=== PATIENT | female | born 1985 | race Hispanic/Latino ===

== ENCOUNTER 2018-01-29 20:10 | Emergency (ER) | payer OTHER ==
[2018-01-29 21:47] LABS: Urine Blood 2+ (NEG); Urine Glucose NEGATIVE (NEG); Urine Protein NEGATIVE (NEG)
[2018-01-29] MEDS ORDERED: ACETAMINOPHEN 500 MG TAB ONE (22:09)
[2018-01-29 22:14] LABS: Absolute Lymphocytes (CBC) 1.6 K/uL (0.7-4.9); Absolute Monocytes 0.4 K/uL (0.1-1.3); Absolute Neutrophil 5.2 K/uL (1.8-8.0); Basophils % 0.8 % (0-1.3); Eosinophils % 1.2 % (0-4.4); Hematocrit 33.3 % (36.0-45.0); Lymphocytes % 21.3 % (15.3-44.8); MCH 23.6 pg (27.0-35.0); MCV 72.5 fL (80-100); MPV 9.2 fL (7.6-11.3); Monocytes % 6.1 % (3.3-12.3); RBC Red Blood Cell Count 4.59 M/uL (3.86-4.86)
[2018-01-29 22:19] LABS: Urine Bacteria <20 /HPF (<20); Urine Culture Reflex Order NOT NEEDED
[2018-01-29 22:51] LABS: BUN Blood Urea Nitrogen 8 mg/dL (7-18); Bicarbonate 26 mmol/L (21-32); Glucose Level 98 mg/dL (74-106); HCG, Quantitative 7265 mIU/mL (1-3); Potassium 3.6 mmol/L (3.5-5.1); Sodium Level 140 mmol/L (136-145)
[2018-01-29 23:13] LABS: Anisocytosis 2+; Blood Morphology Comment NOTED (NOT SEEN); Ovalocytes 2+; Platelet Estimate ADEQ; Urine White Blood Cell Casts OK
--- NOTE | 2018-01-30 01:13 | EDPHYS ---
Physician Documentation [facility] Name: Kath Rodarte Age: 32 yrs Sex: Female : 1985 Arrival Date: 01/29/2018 Time: 20:11 Bed 20 Private MD: ED Physician Rajendra Pham HPI: 01/30 11:35 This 32 yrs old Female presents to ER via Ambulatory with complaints of wa Vaginal Bleeding, + Preg <12wks. 11:36 The patient presents to the emergency department with abdominal pain, of the suprapubic wa area, right lower quadrant and left lower quadrant, that started yesterday, described as crampy, vaginal bleeding, that is light. The estimated gestational age is 7 weeks. course: Ultrasound: the patient had an ultrasound, Risk/complications: no obvious risks or complications are appreciated. Previous pregnancies: in previous pregnancies patient has had vaginal delivery, no complications. Associated signs and symptoms: Pertinent positives: vaginal bleeding, Pertinent negatives: dysuria, fever, nausea, vomiting. The patient has not experienced similar symptoms in the past. The patient has been recently seen by a physician: PORFIRIO Peña. 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 - Social history:: Smoking status: Patient/guardian denies using tobacco. - Ebola Screening: : Patient negative for fever greater than or equal to 101.5 degrees Fahrenheit, and additional compatible Ebola Virus Disease symptoms Patient denies exposure to infectious person Patient denies travel to an Ebola-affected area in the 21 days before illness onset. - Family history:: not pertinent. - Hospitalizations: : No recent hospitalization is reported. ROS: 01/30 11:38 Constitutional: Negative for fever, chills, and weight loss, Eyes: Negative for injury, wa pain, redness, and discharge, ENT: Negative for injury, pain, and discharge, Neck: Negative for injury, pain, and swelling, Cardiovascular: Negative for chest pain, palpitations, and edema, Respiratory: Negative for shortness of breath, cough, wheezing, and pleuritic chest pain, Back: Negative for injury and pain, MS/Extremity: Negative for injury and deformity, Skin: Negative for injury, rash, and discoloration, Neuro: Negative for headache, weakness, numbness, tingling, and seizure. Abdomen/GI: Positive for abdominal pain, of the suprapubic area, right lower quadrant and left lower quadrant. : Positive for pelvic pain, vaginal bleeding. All other systems are negative. Exam: 11:39 Constitutional: This is a well developed, well nourished patient who is awake, alert, wa and in no acute distress. Head/Face: Normocephalic, atraumatic. Eyes: Pupils equal round and reactive to light, extra-ocular motions intact. Lids and lashes normal. Conjunctiva and sclera are non-icteric and not injected. Cornea within normal limits. Periorbital areas with no swelling, redness, or edema. ENT: Nares patent. No nasal discharge, no septal abnormalities noted. Tympanic membranes are normal and external auditory canals are clear. Oropharynx with no redness, swelling, or masses, exudates, or evidence of obstruction, uvula midline. Mucous membranes moist. Neck: Trachea midline, no thyromegaly or masses palpated, and no cervical lymphadenopathy. Supple, full range of motion without nuchal rigidity, or vertebral point tenderness. No Meningismus. Cardiovascular: Regular rate and rhythm with a normal S1 and S2. No gallops, murmurs, or rubs. Normal PMI, no JVD. No pulse deficits. Respiratory: Lungs have equal breath sounds bilaterally, clear to auscultation and percussion. No rales, rhonchi or wheezes noted. No increased work of breathing, no retractions or nasal flaring. Back: No spinal tenderness. No costovertebral tenderness. Full range of motion. Skin: Warm, dry with normal turgor. Normal color with no rashes, no lesions, and no evidence of cellulitis. MS/ Extremity: Pulses equal, no cyanosis. Neurovascular intact. Full, normal range of motion. Neuro: Awake and alert, GCS 15, oriented to person, place, time, and situation. Cranial nerves II-XII grossly intact. Motor strength 5/5 in all extremities. Sensory grossly intact. Cerebellar exam normal. Normal gait. Psych: Awake, alert, with orientation to person, place and time. Behavior, mood, and affect are within normal limits. 11:39 Abdomen/GI: Inspection: abdomen appears normal, Palpation: mild abdominal tenderness, in the right lower quadrant and left lower quadrant. Vital Signs: 01/29 20:36 BP 110 / 61; Pulse 76; Resp 18; Temp 98.9(O); Pulse Ox 100% on R/A; Weight 57.61 kg fc (R); Height 5 ft. 1 in. (154.94 cm) (R); Pain 3/10; 21:45 BP 121 / 62; Pulse 83; Resp 16 S; Pulse Ox 100% ; bs1 22:45 BP 112 / 53; Pulse 79; Resp 16 S; Pulse Ox 100% ; bs1 23:45 BP 105 / 79; Pulse 94; Resp 17 S; Pulse Ox 100% on R/A; bs1 01/30 00:45 BP 124 / 63; Pulse 80; Resp 16 S; Pulse Ox 100% on R/A; bs1 01:30 BP 100 / 60; Pulse 80; Resp 17; Temp 98(O); Pulse Ox 100% on R/A; Pain 3/10; bs1 01/29 20:36 Body Mass Index 24.00 (57.61 kg, 154.94 cm) fc MDM: 01/29 21:29 Patient medically screened. ny 01/30 11:40 Differential diagnosis: threatened ab. r/o miss ab. r/o UTI. Data reviewed: vital wa signs, nurses notes, lab test result(s), radiologic studies. Test interpretation: by ED physician or midlevel provider: pelvic US: 6 weeks 2 days IUP. small KATIE. HR 120. Response to treatment: the patient's symptoms have markedly improved after treatment. 01/29 21:40 Order name: Abo/rh Typing; Complete Time: :01/29 21:40 Order name: Basic Metabolic Panel; Complete Time: :01/29 21:40 Order name: CBC with Diff; Complete Time: :01/29 21:40 Order name: Quantitative Hcg; Complete Time: :01/29 21:41 Order name: Urine Microscopic Only; Complete Time: :08 ny 01/29 21:44 Order name: Urine Dipstick--Ancillary (enter results); Complete Time: 01:09 01/29 21:40 Order name: IV Saline Lock; Complete Time: 21:55 ny 01/29 21:40 Order name: Labs collected and sent; Complete Time: 21:56 ny 01/29 21:40 Order name: NPO; Complete Time: 22:01 ny 01/29 21:40 Order name: Urine Dipstick-Ancillary (obtain specimen); Complete Time: 21:59 ny 01/29 21:41 Order name: US Pelvis Complete 01/29 21:44 Order name: Urine --Ancillary (enter results); Complete Time: 01:09 01/29 22:15 Order name: CBC Smear Scan; Complete Time: 01:08 EDMS Administered Medications: 01/29 22:08 Drug: Tylenol 1000 mg Route: PO; bs1 01/30 01:49 Follow up: Response: No adverse reaction bs1 Point of Care Testing: Urine : 01/29 22:44 hCG Reading: Positive; Control Reading: Positive; bs1 Disposition: 01/30/18 01:12 Discharged to Home. Impression: Threatened . - Condition is Stable. - Discharge Instructions: Threatened Miscarriage. - Medication Reconciliation Form, Thank You Letter, Antibiotic Education, Prescription Opioid Use form. - Follow up: Private Physician; Reason: Recheck today's complaints. - Problem is new. - Symptoms have improved. - Notes: follow up with your OB doctor within 2-3 days. return for severe pain and or bleeding Signatures: Dispatcher [employer] EDCO Sumi Braswell RN RN Rajendra Pham MD MD ny Irena Garcia RN RN bs1 Corrections: (The following items were deleted from the chart) 01/30 01:49 01:12 01/30/2018 01:12 Discharged to Home. Impression: Threatened . Condition bs1 is Stable. Forms are Medication Reconciliation Form, Thank You Letter, Antibiotic Education, Prescription Opioid Use. Follow up: Private Physician; Reason: Recheck today's complaints. Problem is new. Symptoms have improved. wa
--- NOTE | 2018-01-30 01:13 | ER ---
Nurse's Notes [facility] Name: Kath Rodarte Age: 32 yrs Sex: Female : 1985 Arrival Date: 01/29/2018 Time: 20:11 Bed 20 Private MD: Diagnosis: Threatened Presentation: 01/29 20:31 Presenting complaint: Patient states: that she is and started to bleed on Tues. Got worse today. She is a pt of Dr Degroot and was told to come to ER if it was worse. Having pain to lower abd/pelvic region. Only noted bleeding when she urinates, has no pad on. Transition of care: patient was not received from another setting of care. Onset of symptoms was January 26, 2018. Risk Assessment: Do you want to hurt yourself or someone else? Patient reports no desire to harm self or others. Initial Sepsis Screen: Does the patient meet any 2 criteria? No. Patient's initial sepsis screen is negative. Does the patient have a suspected source of infection? No. Patient's initial sepsis screen is negative. Care prior to arrival: None. 20:31 Method Of Arrival: Ambulatory 20:31 Acuity: SUSANA 3 Triage Assessment: 20:40 General: Appears uncomfortable, slender, Behavior is calm, cooperative, appropriate for age. Pain: Complains of pain in suprapubic area, right lower quadrant and left lower quadrant Pain currently is 3 out of 10 on a pain scale. Quality of pain is described as aching, crampy, Pain began gradually, Is continuous. EENT: No deficits noted. Neuro: Level of Consciousness is awake, alert, obeys commands, Oriented to person, place, time, situation. Cardiovascular: No deficits noted. Respiratory: No deficits noted. GI: No deficits noted. : Reports cramping, in bilateral lower quadrant(s) vaginal bleeding that is bright red, spotty. Derm: Skin is pink, warm \T\ dry. Musculoskeletal: Circulation, motion, and sensation intact. Capillary refill < 3 seconds, Range of motion: intact in all extremities. 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 - Social history:: Smoking status: Patient/guardian denies using tobacco. - Ebola Screening: : Patient negative for fever greater than or equal to 101.5 degrees Fahrenheit, and additional compatible Ebola Virus Disease symptoms Patient denies exposure to infectious person Patient denies travel to an Ebola-affected area in the 21 days before illness onset. - Family history:: not pertinent. - Hospitalizations: : No recent hospitalization is reported. Screenin:39 Abuse screen: Denies threats or abuse. Nutritional screening: No deficits noted. Tuberculosis screening: No symptoms or risk factors identified. Fall Risk None identified. Assessment: 21:30 General: Appears in no apparent distress. uncomfortable, Behavior is calm, cooperative, bs1 appropriate for age. Pain: Complains of pain in abdomen and left lower quadrant and right lower quadrant and suprapubic area Pain does not radiate. Pain currently is 8 out of 10 on a pain scale. Neuro: Level of Consciousness is awake, alert, obeys commands, Oriented to person, place, time, situation, Appropriate for age. Cardiovascular: Denies chest pain, shortness of breath, Heart tones S1 S2 present Capillary refill < 3 seconds Patient's skin is warm and dry. Respiratory: Airway is patent Trachea midline Respiratory effort is even, unlabored, Respiratory pattern is regular, symmetrical, Breath sounds are clear bilaterally. GI: Abdomen is round non-distended, Bowel sounds present X 4 quads. Abdomen is tender to palpation in suprapubic area, right lower quadrant and left lower quadrant Reports upper abdominal pain, cramping, nausea. : Reports vaginal bleeding that is bright red, moderate flow. EENT: No signs and/or symptoms were reported regarding the EENT system. Derm: Skin is intact, Skin is pink, warm \T\ dry. Musculoskeletal: Circulation, motion, and sensation intact. Capillary refill < 3 seconds, Range of motion: intact in all extremities. 22:45 Obstetrical Assessment: General assessment: awake and alert. bs1 22:45 Reassessment: Patient appears in no apparent distress at this time. Patient and/or bs1 family updated on plan of care and expected duration. Pain level reassessed. Patient is alert, oriented x 3, equal unlabored respirations, skin warm/dry/pink. 01/30 00:00 Reassessment: Patient appears in no apparent distress at this time. No changes from bs1 previously documented assessment. Patient and/or family updated on plan of care and expected duration. Pain level reassessed. Patient is alert, oriented x 3, equal unlabored respirations, skin warm/dry/pink. Pending results of Ultrasound. 01:15 Reassessment: Patient appears in no apparent distress at this time. Patient and/or bs1 family updated on plan of care and expected duration. Pain level reassessed. Patient is alert, oriented x 3, equal unlabored respirations, skin warm/dry/pink. Patient states feeling better. Patient states symptoms have improved. Vital Signs: 01/29 20:36 BP 110 / 61; Pulse 76; Resp 18; Temp 98.9(O); Pulse Ox 100% on R/A; Weight 57.61 kg fc (R); Height 5 ft. 1 in. (154.94 cm) (R); Pain 3/10; 21:45 BP 121 / 62; Pulse 83; Resp 16 S; Pulse Ox 100% ; bs1 22:45 BP 112 / 53; Pulse 79; Resp 16 S; Pulse Ox 100% ; bs1 23:45 BP 105 / 79; Pulse 94; Resp 17 S; Pulse Ox 100% on R/A; bs1 01/30 00:45 BP 124 / 63; Pulse 80; Resp 16 S; Pulse Ox 100% on R/A; bs1 01:30 BP 100 / 60; Pulse 80; Resp 17; Temp 98(O); Pulse Ox 100% on R/A; Pain 3/10; bs1 01/29 20:36 Body Mass Index 24.00 (57.61 kg, 154.94 cm) Vitals: 01/29 22:44 Heart Tones Too early to assess heart tones with doppler. Patient to have bs1 Ultrasound. ED Course: 20:11 Patient arrived in ED. es 20:34 Triage completed. fc 20:36 Arm band placed on Patient placed in waiting room, Patient notified of wait time. fc 21:29 Rajendra Pham MD is Attending Physician. wa 21:30 Irena Garcia, RN is Primary Nurse. bs1 21:52 Radiology exam delayed due to test not completed at this time. sg3 21:55 Initial lab(s) drawn, by me, sent to lab. Inserted saline lock: 22 gauge in right ks6 antecubital area, using aseptic technique. Blood collected. 22:15 Patient has correct armband on for positive identification. Placed in gown. Bed in low bs1 position. Call light in reach. Side rails up X 1. Pulse ox on. NIBP on. 22:50 Ultrasound completed. Patient tolerated well. sg3 22:51 US Pelvis Complete In Process Unspecified. EDMS 22:52 Notified ED Physician karl with us prelim. sg3 01/30 01:42 No provider procedures requiring assistance completed. IV discontinued, bleeding bs1 controlled, No redness/swelling at site. Pressure dressing applied. Administered Medications: 01/29 22:08 Drug: Tylenol 1000 mg Route: PO; bs1 01/30 01:49 Follow up: Response: No adverse reaction bs1 Point of Care Testing: Urine : 01/29 22:44 hCG Reading: Positive; Control Reading: Positive; bs1 Outcome: 01/30 01:12 Discharge ordered by . wi 01:43 Discharged to home ambulatory, with family. bs1 01:43 Condition: stable 01:43 Discharge instructions given to patient, Instructed on discharge instructions, follow up and referral plans. Demonstrated understanding of instructions, follow-up care. 01:49 Patient left the ED. bs1 Signatures: Dispatcher [employer] Yaima Hogue Felicia, RN RN Rajendra Pham MD MD wa Godinez, Sarah 3 Irena Garcia, RN RN bs1 Ld [place] ks6 Corrections: (The following items were deleted from the chart) 01/29 20:51 20:36 Arm band placed on Patient placed in an exam room, on a stretcher, [facility]
[2018-01-30 01:54] VITALS: O2SAT 100
[2018-01-30 02:00] VITALS: BP 100/60; TEMP 98
--- NOTE | 2018-01-30 08:33 | RAD REPORT ---
EXAM DESCRIPTION: US - Pelvis Complete - 01/29/2018 10:51 pm CLINICAL HISTORY: Vaginal bleeding, positive study. Preliminary findings provided to the referring clinician at the time of the study. COMPARISON: None. TECHNIQUE: Transabdominal pelvic sonography was performed. FINDINGS: A single intrauterine gestation is identifiable. Gestational sac has a normal configuratio n. pole and yolk sac are identifiable. Heart rate is 120-126 BPM. Cervical canal is closed. A 2 .0 x 0.9 centimeter subchorionic hemorrhage is present. This is probably not significant at this size but can be monitored with follow-up examination. Ovaries and adnexa show no suspicious findings. No hemorrhage or free fluid in the cul-de-sac. Gestational sac and crown-rump length measurements yield a 6 week 2 day age. Calculated JOY is 2018. IMPRESSION: Single 6 week 2 day IUP with an JOY of 09/22/2018. Heart rate measures 120-126 BPM. Small 2 x 1 cm subchorionic hemorrhage can be monitored on subsequent imaging. Cervical canal is clos ed.
== END 2018-01-30 01:49 | disposition home or self-care (01) ==
LOC: ER 20:10
DX: O20.0 Threatened abortion (principal); Z3A.01 Less than 8 weeks gestation of pregnancy
CPT/HCPCS: 36415; 76856; 80048; 81003; 81015; 81025; 84702; 85025; 86900; 86901; 99284

== ENCOUNTER 2018-10-30 16:21 | Emergency (ER) | payer OTHER ==
--- OUTSIDE RECORDS SUMMARY | 2018-10-30 16:24 | XMS REPORT ---
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
--- OUTSIDE RECORDS SUMMARY | 2018-10-30 16:24 | XMS REPORT ---
:1985 Author Organization [employer] Care Team Providers Name Role Phone Kalin Colbert Provider Role Unavailable Allergies No Known Allergies Problems Problem Type Condition Code Onset Dates Condition Status Problem Vaginal bleeding N93.9 Active Problem Threatened in first O20.0 Active trimester Problem Amenorrhea N91.2 Active Problem Uterine scar from previous O34.219 Active delivery Problem Complete O03.9 Active Problem Mitral valve disease I05.9 Active Problem Encounter for supervision of Z34.91 Active low-risk in first trimester Medications No Known Medications Results No Known Results Summary Purpose eClinicalWorks Submission
--- OUTSIDE RECORDS SUMMARY | 2018-10-30 16:24 | XMS REPORT ---
:1985 Author Organization [employer] Care Team Providers Name Role Phone VerenicesaskiayadyRomainKalin Provider Role Unavailable Allergies, Adverse Reactions, Alerts Substance Reaction Event Type N.K.D.A. 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
--- OUTSIDE RECORDS SUMMARY | 2018-10-30 16:24 | XMS REPORT ---
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
--- OUTSIDE RECORDS SUMMARY | 2018-10-30 16:24 | XMS REPORT ---
:1985 Author Organization eClinicalWorks Care Team Providers Name Role Phone Kalin Colbert Provider Role Unavailable Allergies No Known Allergies Problems Problem Type Condition Code Onset Dates Condition Status Assessment Amenorrhea N91.2 Active Problem Vaginal bleeding N93.9 Active Problem Threatened [...]
--- OUTSIDE RECORDS SUMMARY | 2018-10-30 16:24 | XMS REPORT ---
:1985 Author Organization e[employer]Works Care Team Providers Name Role Phone Kalin Colbert Provider Role Unavailable Allergies, Adverse Reactions, Alerts Substance Reaction Event Type N.K.D.A. Info Not Available Non Drug Allergy Problems Problem Type Condition Code Onset Dates Condition Status Assessment Encounter for supervision of other Z34.81 Active normal in first trimester Assessment Amenorrhea N91.2 Active Assessment Uterine scar from previous O34.219 Active delivery Assessment Encounter for supervision of Z34.91 Active low-risk in first trimester Assessment Encounter to determine O36.80X0 Active viability of , single or unspecified fetus Medications Medication Code System Code Instructions Start Date End Date Status Dosage [facility] 34534175011 27-1 MG Orally Active 1 tablet Once a day Results Name Result Date Reference Range Unit Abnormality Flag URINALYSIS AUTO W/O SCOPE (12420) ----NIT neg 20180126 ----URO 0.2 20180126 ----PROTEIN neg 20180126 ----pH 7.0 20180126 ----BLO neg 20180126 ----GLUCOSE neg 20180126 ----JOSÉ MANUEL neg 20180126 ----BILIRUBIN neg 20180126 ----KETONES neg 20180126 ----SPECIFIC GRAVITY 1.020 20180126 Summary Purpose eClinicalWorks Submission
--- OUTSIDE RECORDS SUMMARY | 2018-10-30 16:24 | XMS REPORT ---
:1985 Author Organization eClinicalWorks Care Team Providers Name Role Phone Kalin Colbert Provider Role Unavailable Allergies, Adverse Reactions, Alerts Substance Reaction Event Type N.K.D.A. 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
[2018-10-30 17:04] LABS: Urine Blood NEGATIVE (NEG); Urine Glucose NEGATIVE (NEG); Urine Protein NEGATIVE (NEG); Urine pH 6.5 (5.0-7.0)
[2018-10-30 17:05] LABS: Absolute Lymphocytes (CBC) 1.4 K/uL (0.7-4.9); Absolute Monocytes 0.7 K/uL (0.1-1.3); Absolute Neutrophil 6.9 K/uL (1.8-8.0); Basophils % 0.4 % (0-1.3); Eosinophils % 3.1 % (0-4.4); Hematocrit 36.7 % (36.0-45.0); Lymphocytes % 14.7 % (15.3-44.8); MPV 8.9 fL (7.6-11.3); Monocytes % 7.6 % (3.3-12.3); RBC Red Blood Cell Count 4.61 M/uL (3.86-4.86)
[2018-10-30 17:37] LABS: BUN Blood Urea Nitrogen 8 mg/dL (7-18); Bicarbonate 27 mmol/L (21-32); Glucose Level 93 mg/dL (74-106); HCG, Quantitative 78671 mIU/mL (1-3); Potassium 3.7 mmol/L (3.5-5.1); Sodium Level 138 mmol/L (136-145)
--- NOTE | 2018-10-30 17:54 | RAD REPORT ---
EXAM DESCRIPTION: US - Transvaginal OB - 10/30/2018 5:44 pm CLINICAL HISTORY: VAGINAL BLEEDING COMPARISON: Transvaginal OB dated 10/22/2018 FINDINGS: A single gestational sac is seen within the uterus. The shape of the sac is within normal limits for gestational age. Within the sac is a single pole with crown-rump length of 8 mm, cor relating to estimated gestational age of 6 weeks 5 days. Estimated date of delivery is 06/21/2019. Heart rate is 126 BPM. The placenta is not yet developed due to early gestational age. The maternal adnexa and ovaries are within normal limits. Normal Doppler blood flow was demonstrated to both ovaries. IMPRESSION: Single live early intrauterine gestation with estimated gestational age of 6 weeks 5 day s, JOY 06/21/2019. No unusual or unexpected finding.
--- NOTE | 2018-10-30 18:38 | EDPHYS ---
Physician Documentation [facility] Name: Kath Rodarte Age: 32 yrs Sex: Female : 1985 Arrival Date: 10/30/2018 Time: 16:24 Bed 5 Private MD: None, None ED Physician Carlitos Mcghee HPI: 10/30 17:00 This 32 yrs old Female presents to ER via Ambulatory with complaints of cp Vaginal Bleeding, + Preg <12wks. 17:00 The patient presents to the emergency department with vaginal bleeding, that is light. cp 17:00 course: care: private OB physician, Leakage of Fluid: none cp appreciated. 17:00 Previous pregnancies: in previous pregnancies patient has had no complications. cp Associated signs and symptoms: Pertinent positives: abdominal pain, vaginal bleeding, Pertinent negatives: diarrhea, dysuria, fever, ruptured membranes. 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 - Social history:: Smoking status: Patient/guardian denies using tobacco. - Ebola Screening: : No symptoms or risks identified at this time. ROS: 17:05 Constitutional: Negative for body aches, chills, fever, poor PO intake. cp 17:05 Eyes: Negative for injury, pain, redness, and discharge. cp 17:05 ENT: Negative for drainage from ear(s), ear pain, sore throat, difficulty swallowing, difficulty handling secretions. 17:05 Cardiovascular: Negative for chest pain, edema, palpitations. 17:05 Respiratory: Negative for cough, shortness of breath, wheezing. 17:05 Abdomen/GI: Positive for abdominal cramps, Negative for vomiting, diarrhea, constipation, black/tarry stool, rectal bleeding. 17:05 Back: Negative for pain at rest, pain with movement, radiated pain. 17:05 : Positive for vaginal bleeding, Negative for urinary symptoms. 17:05 Skin: Negative for cellulitis, rash. 17:05 Neuro: Negative for altered mental status, headache, weakness. 17:05 All other systems are negative. Exam: 17:12 Constitutional: The patient appears in no acute distress, alert, awake, non-toxic, well cp developed, well nourished. 17:12 Head/Face: Normocephalic, atraumatic. cp 17:12 Eyes: Periorbital structures: appear normal, Conjunctiva: normal, no exudate, no injection, Sclera: no appreciated abnormality, Lids and lashes: appear normal, bilaterally. 17:12 ENT: External ear(s): are unremarkable, Nose: is normal, Mouth: Lips: moist, Oral mucosa: pink and intact, moist, Posterior pharynx: is normal, airway is patent, no erythema, no exudate. 17:12 Chest/axilla: Inspection: normal, Palpation: is normal, no crepitus, no tenderness. 17:12 Cardiovascular: Rate: normal, Rhythm: regular, Edema: is not appreciated, JVD: is not appreciated. 17:12 Respiratory: the patient does not display signs of respiratory distress, Respirations: normal, no use of accessory muscles, no retractions, no splinting, no tachypnea, labored breathing, is not present, Breath sounds: are clear throughout, no decreased breath sounds, no stridor, no wheezing. 17:12 Abdomen/GI: Inspection: abdomen appears normal, Palpation: abdomen is soft and non-tender, in all quadrants, rebound tenderness, is not appreciated, involuntary guarding, is not appreciated. 17:12 Back: pain, is absent, ROM is normal. Vital Signs: 16:35 BP 115 / 74; Pulse 77; Resp 16; Temp 97.6; Pulse Ox 98% on R/A; Weight 58.97 kg; Height la1 5 ft. 1 in. (154.94 cm); 17:03 BP 107 / 63; Pulse 69; Resp 18; Pulse Ox 100% on R/A; hj 18:45 BP 102 / 58; Pulse 70; Resp 18; Pulse Ox 100% on R/A; hj 16:35 Body Mass Index 24.56 (58.97 kg, 154.94 cm) la1 MDM: 16:43 Patient medically screened. cp 17:00 Differential diagnosis: STD, ectopic . cp 18:35 Data reviewed: vital signs, nurses notes, lab test result(s), radiologic studies, cp ultrasound. 18:35 Counseling: I had a detailed discussion with the patient and/or guardian regarding: the cp historical points, exam findings, and any diagnostic results supporting the discharge/admit diagnosis, lab results, radiology results, the need for outpatient follow up, an OB/Gyne specialist, to return to the emergency department if symptoms worsen or persist or if there are any questions or concerns that arise at home. ED course: VSS. Patient reports vaginal bleeding improved. Discussed results of US and labs. Will discharge to home for continued monitoring. 10/30 16:47 Order name: Quantitative Hcg; Complete Time: 17:48 cp 10/30 17:48 Interpretation: HCGQ 00392; Reviewed. 10/30 16:47 Order name: Abo/rh Typing; Complete Time: 18:34 cp 10/30 18:34 Interpretation: Reviewed. 10/30 16:47 Order name: Basic Metabolic Panel; Complete Time: 17:48 10/30 16:47 Order name: CBC with Diff; Complete Time: 17:48 10/30 17:48 Interpretation: Normal except: MCV 79.7; MCH 25.9; RDW 20.0; KIANNA% 74.2; LYM% 14.7. 10/30 16:48 Order name: Urine Dipstick--Ancillary (enter results); Complete Time: 17:06 10/30 17:49 Interpretation: Normal except: UESTR TRACE. 10/30 16:48 Order name: Urine --Ancillary (enter results); Complete Time: 17:06 10/30 17:49 Interpretation: Reviewed. 10/30 16:47 Order name: Urine Test (obtain specimen); Complete Time: 16:51 cp 10/30 16:47 Order name: IV Saline Lock; Complete Time: 16:51 cp 10/30 16:47 Order name: Labs collected and sent; Complete Time: 16:52 cp 10/30 16:47 Order name: NPO; Complete Time: 16:52 cp 10/30 16:47 Order name: Urine Dipstick-Ancillary (obtain specimen); Complete Time: 16:52 cp 10/30 16:47 Order name: US Transvaginal Ob; Complete Time: 17:55 cp Administered Medications: No medications were administered Point of Care Testing: Urine : 17:03 hCG Reading: Positive; hj Disposition: 10/31 07:06 Co-signature as Attending Physician, Carlitos Mcghee MD. rn Disposition: 10/30/18 18:37 Discharged to Home. Impression: Threatened . - Condition is Stable. - Discharge Instructions: Threatened Miscarriage, Vaginal Bleeding During , First Trimester, Pelvic Rest. - Prescriptions for Vitamin 27- 0.8 mg Oral Tablet - take 1 tablet by ORAL route once daily; 60 tablet. - Medication Reconciliation Form, Thank You Letter, Antibiotic Education, Prescription Opioid Use form. - Follow up: Private Physician; When: 1 week; Reason: Recheck today's complaints. - Problem is new. - Symptoms have improved. Signatures: Dispatcher [employer] EDMS Carlitos Mcghee MD MD rn Attema, Lee, RN RN la1 Isaias Montes De Oca RN RN hj Page, Corey, PA PA cp Corrections: (The following items were deleted from the chart) 10/30 18:46 18:37 10/30/2018 18:37 Discharged to Home. Impression: Threatened . Condition hj is Stable. Forms are Medication Reconciliation Form, Thank You Letter, Antibiotic Education, Prescription Opioid Use. Follow up: Private Physician; When: 1 week; Reason: Recheck today's complaints. Problem is new. Symptoms have improved. cp
--- NOTE | 2018-10-30 18:38 | ER ---
Nurse's Notes [facility] Name: Kath Rodarte Age: 32 yrs Sex: Female : 1985 Arrival Date: 10/30/2018 Time: 16:24 Bed 5 Private MD: None, None Diagnosis: Threatened Presentation: 10/30 16:34 Presenting complaint: Patient states: LMP 09/13/2018, started with lower abd cramping la1 and vaginal bleeding today. Recent history of miscarriage in January. Transition of care: patient was not received from another setting of care. Onset of symptoms was October 30, 2018. Risk Assessment: Do you want to hurt yourself or someone else? Patient reports no desire to harm self or others. Initial Sepsis Screen: Does the patient meet any 2 criteria? No. Patient's initial sepsis screen is negative. Does the patient have a suspected source of infection? No. Patient's initial sepsis screen is negative. Care prior to arrival: None. 16:34 Method Of Arrival: Ambulatory la1 16:34 Acuity: SUSANA 3 la1 Triage Assessment: 16:41 General: Appears in no apparent distress. uncomfortable, Behavior is calm, cooperative, hj appropriate for age. : Reports vaginal bleeding that is. 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 - Social history:: Smoking status: Patient/guardian denies using tobacco. - Ebola Screening: : No symptoms or risks identified at this time. Screenin:41 Abuse screen: Denies threats or abuse. Denies injuries from another. Nutritional hj screening: No deficits noted. Tuberculosis screening: No symptoms or risk factors identified. Fall Risk None identified. Assessment: 16:43 General: Appears in no apparent distress. uncomfortable, Behavior is calm, cooperative, hj appropriate for age. Pain: Complains of pain in abdomen Pain currently is 5 out of 10 on a pain scale. Neuro: Level of Consciousness is awake, alert, obeys commands, Oriented to person, place, time, situation, Appropriate for age. Cardiovascular: Capillary refill < 3 seconds Patient's skin is warm and dry. Respiratory: Airway is patent Respiratory effort is even, unlabored, Respiratory pattern is regular, symmetrical. GI: No signs and/or symptoms were reported involving the gastrointestinal system. : Reports vaginal bleeding that is. EENT: No signs and/or symptoms were reported regarding the EENT system. Derm: No signs and/or symptoms reported regarding the dermatologic system. Musculoskeletal: No signs and/or symptoms reported regarding the musculoskeletal system. 17:02 Reassessment: Patient and/or family updated on plan of care and expected duration. Pain hj level reassessed. Patient is alert, oriented x 3, equal unlabored respirations, skin warm/dry/pink. awaiting results and POC;. 18:45 Obstetrical Assessment: N/A. Vital Signs: 16:35 BP 115 / 74; Pulse 77; Resp 16; Temp 97.6; Pulse Ox 98% on R/A; Weight 58.97 kg; Height la1 5 ft. 1 in. (154.94 cm); 17:03 BP 107 / 63; Pulse 69; Resp 18; Pulse Ox 100% on R/A; hj 18:45 BP 102 / 58; Pulse 70; Resp 18; Pulse Ox 100% on R/A; hj 16:35 Body Mass Index 24.56 (58.97 kg, 154.94 cm) la1 Vitals: 18:46 Heart Tones no result. ED Course: 16:24 Patient arrived in ED. mr 16:25 None, None is Private Physician. mr 16:35 Triage completed. la1 16:36 Ariel Manning PA is PHCP. cp 16:36 Carlitos Mcghee MD is Attending Physician. cp 16:36 Arm band placed on left wrist. la1 16:38 Isaias Montes De Oca, GERMAN is Primary Nurse. hj 16:45 Patient has correct armband on for positive identification. Placed in gown. Bed in low hj position. Call light in reach. Side rails up X 1. Adult w/ patient. 16:50 Initial lab(s) drawn, by me, sent to lab. Inserted saline lock: 20 gauge in right hj antecubital area, using aseptic technique. Blood collected. 17:42 US Transvaginal Ob In Process Unspecified. EDMS 17:43 Ultrasound completed. Patient tolerated well. Notified PROGRAM DEVELOPMENT MANAGER/MATILDE toussaint. sg3 18:44 No provider procedures requiring assistance completed. IV discontinued, intact, hj bleeding controlled, No redness/swelling at site. Pressure dressing applied. Administered Medications: No medications were administered Point of Care Testing: Urine : 17:03 hCG Reading: Positive; hj Outcome: 18:37 Discharge ordered by MD. yola 18:45 Discharged to home ambulatory, with family. hj 18:45 Condition: stable 18:45 Discharge instructions given to patient, family, Instructed on discharge instructions, follow up and referral plans. medication usage, Demonstrated understanding of instructions, follow-up care, medications, Prescriptions given X 1. 18:46 Patient left the ED. Signatures: Dispatcher [employer] EDRI Luis Angel Joaquina FidelTra, RN RN la1 Isaias Montes De Oca RN RN Ariel Worthy PA PA cp Godinez, Sarah sg3
[2018-10-30 19:21] VITALS: O2SAT 100
[2018-10-30 19:22] VITALS: TEMP 97.6
[2018-10-30 19:23] VITALS: BP 102/58
== END 2018-10-30 18:46 | disposition home or self-care (01) ==
LOC: ER 16:21
DX: O20.0 Threatened abortion (principal); Z3A.01 Less than 8 weeks gestation of pregnancy
CPT/HCPCS: 36415; 76817; 80048; 81003; 81025; 84702; 85025; 86900; 86901; 99284

== ENCOUNTER 2020-01-19 18:28 | Emergency (ER) | payer OTHER, SELFPAY ==
--- OUTSIDE RECORDS SUMMARY | 2020-01-19 18:30 | XMS REPORT | Continuity of Care Document ---
:1985 Author Organization [facility] t Address [address] [place] [address] Care Team Providers Name Role Phone Unavailable Unavailable Unavailable Payers Payer Name Policy Type Policy Number Effective Date Expiration Date S ource Problems Condition Condition Condition Status Onset Resolution Last Treating Co mments Source Name Details Category Date Date Treatment Clinician Date Uterine Uterine Problem Active [facility] scar from scar from [facility] - previous previous Memori a l delivery delivery Outpat i ent Clinics Encounter Encounter Problem Active [facility] for for [facility] - supervisio supervisio Va moria n of n of l low-risk low-risk Outpat i ent in first in first Clinic s trimester trimester Mitral 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[facility] valve valve [facility] - disease disease Memoria l [facility] ent Clinics Threatened Threatened Problem Active [facility] Vaginal Vaginal Problem Active [facility] bleeding bleeding [facility] - [facility] Complete Complete Problem Active [facility] Amenorrhea Amenorrhea Problem Active [facility] - [facility] Supervisio Supervisio Problem Active [facility] n of high n of high [facility] - risk risk Memoria l in first in first Outpat i trimester trimester ent Clinics Nausea/vom Nausea/vom Problem Active [facility] iting in iting in [facility] - [facility] Clinics Supervisio Supervisio Problem Active [facility] n of high n of high [facility] - risk risk Memoria l in second in second Outp ati trimester trimester ent Clinics Allergies, Adverse Reactions, Alerts Allergy Allergy Status Severity Reaction(s) Onset Inactive Treating Comm ents Source Name Type Date Date Clinician No Known DA Active U 2018-08 [facility] 1-08 Clear s 00:00: Johnson 00 [facility] No Known DA Active U [facility] Allergie 3-08 Clear s 00:00: Johnson 00 [facility] Medications Ordered Filled Start Stop Current Ordering Indication Dosage Frequency Signature Comments Components Source Medication Medication Date Date Medication? Clinician (SIG) Name Name Ondansetron Ondansetron Yes Kalin as [facility] -17 Rekhi directed [facility] - 00:00: Memoria 00 [facility] Yes Kalin [address] [facility] [address] Rek[facility] Procedures This patient has no known procedures. Encounters Start End Encounter Admission Attending Care Care Encounter Source Date/Time Date/Time Type Type Clinicians Facility Department ID 2019-01-21 2019-01-21 [facility] [id number] [address] 14:44:00 14:44:00 t [facility]ens [facility] 2019-01-20 2019-01-20 [facility] [id number] [address] 11[facility]15:00 11:15:00 t [facility] 2018-11-17 2018-11-17 [facility] [id number] 14:00:00 14:00:00 t [facility] 2018-11-05 2018-11-05 [facility] [id number] 11:53:00 11:53:00 t [facility] Womens [facility] 2018-11-05 2018-11-05 [facility] [id number] [address] 10:20:00 10:20:00 t [facility] 2018-11-04 2018-11-04 [facility] [id number] 11:34:00 11:34:00 t [facility] 2018-11-03 2018-11-03 [facility] [id number] [address] 14:29:00 14:29:00 t [facility]omens [facility] - [facility] 2018-11-03 2018-11-03 [facility] [id number] 13:49:00 13:49:00 t [facility]omens [facility] 2018-10-20 2018-10-20 [facility] [id number] [address] 08:40:00 08:40:00 t Womens [facility] Care [facility] 2018-10-19 2018-10-19 [facility] [id number] 15:33:00 15:33:00 t [facility]omens [facility] 2018-10-14 2018-10-14 [facility] [id number] 15:38:00 15:38:00 t Womens Womens Care [facility] 2018-10-14 2018-10-14 [facility] [id number] 11:44:00 11:44:00 t Womens [facility] 2018-02-15 2018-02-15 [facility] [id number] [address] 15:15:00 15:15:00 t [facility] 2018-02-01 2018-02-01 [facility] [id number] 15:45:00 15:45:00 t [facility] 2018-01-28 2018-01-28 [facility] [id number] 15:00:00 15:00:00 t [facility] 2018-01-26 2018-01-26 Outpatient Navneet Self [id number] 15:16:00 15:16:00 t [facility]ide [facility] 2018-01-26 2018-01-26 [facility] [id number] 10:45:00 10:45:00 t [facility] Care [facility] Results Test Description Test Time Test Comments Results Result [facility] e Comments SURGICAL SPECIMENS 2019-06-17 07:49:00 --------RUN DATE: 06/17/19 [facility] *LIVE* PAGE 1 RUN TIME: 748 Specimen Inquiry RUN USER: INTERFACE --------PATIENT: ADRYAN SNYDER LOC: ELLI U #: [id number] AGE/SX: 33/F [place] [facility] [place]19JOHAN DR: Uma Meraz MD : 86 BED: 1 DIS: STATUS: ADM IN TLOC: -------- SPEC #: [id number] RECD: 06/15/19 STATUS: JACQUES ANDERSEN #: [id number] BERNARD: 06/15/[address] [facility] [address]: Uma Meraz MD ENTERED: 06/17/19 SP TYPE: SURG SPEC OTHR DR: Pasquale Pierson JR, MD ORDERED: LEVEL 4 CODES: [id number] - FALLOPIAN TUBE COPIES TO: Uma Meraz MD [address] [place], [place] [id number] [email or web address] Pasquale Pierson JR, MD [address] [address] PROCEDURES: LEVEL 4 (Incomplete) TISSUES: 1. FALLOPIAN TUBE, NOS - Fallopian tube, left, segment 2. FALLOPIAN TUBE, NOS - Fallopian tube, right, segment FINAL DIAGNOSIS Fallopian tube, right, segment: Complete transection. Fallopian tube, left, segment: Complete transection. GROSS AND MICROSCOPIC GROSS DESCRIPTION: Received in formalin and labeled "left" is a 5.7 x 0.9 cm healy, cylindrical segment. Physician Assistant Psychiatry cross-sections are submitted in (A). Received in formalin and labeled "right" is a 6.3 x 1 cm healy cylindrical segment. Physician Assistant Psychiatry cross-sections are submitted in (B). MICROSCOPIC EXAMINATION: Each fallopian tube segment has a completely transected lumen and is free of significant inflammation. CONTINUED ON NEXT PAGE --------RUN DATE: 06/17/19 [facility] *LIVE* PAGE 2 RUN TIME: 748 Specimen Inquiry RUN USER: INTERFACE --------SPEC #: [id number] PATIENT: ADRYAN SNYDER #[id number] (Continued) POST-OP DIAGNOSIS Delivered PRE-OP DIAGNOSIS , 40 weeks, term intrauterine Signed SIGNATURE ON FILE Marcelo Barillas MD 06/17/19 0749 -------- END OF REPORT CBC W/AUTO DIFF 2019-06-16 19:52:00 Test Item Value Reference Range Interpretation Comme nts WHITE BLOOD CELL (test code = WBC) 10.46 x10 3/uL 4.5-11.0 N RED BLOOD CELL (test code = RBC) 3.12 x10 6/uL 3.54-5.02 L HEMOGLOBIN (test code = HGB) 9.2 g/dL 11.0-15.0 L HEMATOCRIT (test code = HCT) 27.6 % 33.0-45.0 L MEAN CELL VOLUME (test code = MCV) 88.5 fL 81.0-99.0 N MEAN CELL HGB (test code = MCH) 29.5 pg 27.0-33.0 N MEAN CELL HGB CONCETRATION (test code = MCHC) 33.3 g/dL 33.0-37. 0 N RED CELL DISTRIBUTION WIDTH CV (test code = RDW) 14.4 % 11.5- 14.5 N RED CELL DISTRIBUTION WIDTH SD (test code = RDW-SD) 46.1 fL 37 .0-54.0 N PLATELET COUNT (test code = PLT) 211 x10 3/uL 150-400 N MEAN PLATELET VOLUME (test code = MPV) 10.4 fL 7.0-9.0 H NEUTROPHIL % (test code = NT%) 81.1 % 56.0-77.0 H IMMATURE GRANULOCYTE % (test code = IG%) 0.6 % 0.0-2.0 N LYMPHOCYTE % (test code = LY%) 10.6 % 14.0-32.0 L MONOCYTE % (test code = MO%) 6.6 % 4.8-9.0 N EOSINOPHIL % (test code = EO%) 0.8 % 0.3-3.7 N BASOPHIL % (test code = BA%) 0.3 % 0.0-2.0 N NUCLEATED RBC % (test code = NRBC%) 0.0 % 0-0 N NEUTROPHIL # (test code = NT#) 8.49 x10 3/uL 2.0-7.6 H IMMATURE GRANULOCYTE # (test code = IG#) 0.06 x10 3/uL 0.00-0.03 H LYMPHOCYTE # (test code = LY#) 1.11 x10 3/uL 1.0-3.8 N MONOCYTE # (test code = MO#) 0.69 x10 3/uL 0.1-0.8 N EOSINOPHIL # (test code = EO#) 0.08 x10 3/uL 0.0-0.2 N BASOPHIL # (test code = BA#) 0.03 x10 3/uL 0.0-0.2 N NUCLEATED RBC # (test code = NRBC#) 0.00 x10 3/uL 0.0-0.1 N MANUAL DIFF REQUIRED (test code = MDIFF) NO COMMENTS: POD #1 and #2COMPREHENSIVE METABOLIC [id number] 07:46:00 Test Item Value Reference Range Interpretation Comments SODIUM (test code = NA) 138 mEq/L 134-147 N POTASSIUM (test code = 3.7 mEq/L 3.4-5.0 N K) CHLORIDE (test code = 110 mEq/L 100-108 H CL) CARBON DIOXIDE (test 21 mEq/L 21-33 N code = CO2) ANION GAP (test code = 11 0-20 N GAP) GLUCOSE (test code = 76 mg/dL 70-110 N GLU) BLOOD UREA NITROGEN 9 mg/dL 7-18 N (test code = BUN) GLOMERULAR FILTRATION 115.9 105-110 H Units of measure = RATE (test code = GFR) ml/mi n/1.73 m2 CREATININE (test code = 0.6 mg/dL 0.6-1.3 N CREAT) TOTAL PROTEIN (test 5.0 g/dL 6.4-8.2 L code = PROT) ALBUMIN (test code = 1.90 g/dL 3.4-5.0 L ALB) CALCIUM (test code = 7.9 mg/dL 8.0-10.5 L CA) BILIRUBIN TOTAL (test 0.5 MG/DL <1.5 N code = BILT) SGOT/AST (test code = 27 IUnit/L 15-37 N AST) SGPT/ALT (test code = 15 IUnit/L 15-65 N ALT) ALKALINE PHOSPHATASE 70 IUnit/L 20-125 N TOTAL (test code = ALKP) COMMENTS: POD #1CBC W/AUTO [id number] 07:20:00 Test Item Value Reference Range Interpretation Comments WHITE BLOOD CELL (test code = 13.27 x10 3/uL 4.5-11.0 H WBC) RED BLOOD CELL (test code = 3.16 x10 6/uL 3.54-5.02 L RBC) HEMOGLOBIN (test code = HGB) 9.3 g/dL 11.0-15.0 L HEMATOCRIT (test code = HCT) 27.8 % 33.0-45.0 L MEAN CELL VOLUME (test code = 88.0 fL 81.0-99.0 N MCV) MEAN CELL HGB (test code = 29.4 pg 27.0-33.0 N MCH) MEAN CELL HGB CONCETRATION 33.5 g/dL 33.0-37.0 N (test code = MCHC) RED CELL DISTRIBUTION WIDTH CV 14.3 % 11.5-14.5 N (test code = RDW) RED CELL DISTRIBUTION WIDTH SD 45.3 fL 37.0-54.0 N (test code = RDW-SD) PLATELET COUNT (test code = 196 x10 3/uL 150-400 N PLT) MEAN PLATELET VOLUME (test 11.7 fL 7.0-9.0 H code = MPV) NEUTROPHIL % (test code = NT%) 81.8 % 56.0-77.0 H IMMATURE GRANULOCYTE % (test 0.5 % 0.0-2.0 N code = IG%) LYMPHOCYTE % (test code = LY%) 8.4 % 14.0-32.0 L MONOCYTE % (test code = MO%) 8.7 % 4.8-9.0 N EOSINOPHIL % (test code = EO%) 0.2 % 0.3-3.7 L BASOPHIL % (test code = BA%) 0.4 % 0.0-2.0 N NUCLEATED RBC % (test code = 0.0 % 0-0 N NRBC%) NEUTROPHIL # (test code = NT#) 10.85 x10 3/uL 2.0-7.6 H IMMATURE GRANULOCYTE # (test 0.07 x10 3/uL 0.00-0.03 H code = IG#) LYMPHOCYTE # (test code = LY#) 1.11 x10 3/uL 1.0-3.8 N MONOCYTE # (test code = MO#) 1.16 x10 3/uL 0.1-0.8 H EOSINOPHIL # (test code = EO#) 0.03 x10 3/uL 0.0-0.2 N BASOPHIL # (test code = BA#) 0.05 x10 3/uL 0.0-0.2 N NUCLEATED RBC # (test code = 0.00 x10 3/uL 0.0-0.1 N NRBC#) MANUAL DIFF REQUIRED (test NO code = MDIFF) COMMENTS: POD #1 and #2RAPID PLASMA [id number] 10:51:00 Test Item Value Reference Range Interpretation Comments RAPID PLASMA REAGIN (test code = NONREACTIVE NONREACTIVE RPR) AG HEPATITIS B [id number] 10:51:00 Test Item Value Reference Range Interpretation Comments AG HEPATITIS B SURFACE NON REACTIVE INDEX NonReactive (test code = HBSAG) AB HIV 1 10:51:00 Test Item Value Reference Range Interpretation Comments AB HIV 1 2 (test code = NONREACTIVE INDEX NONREACTIVE [id number]) RAPID PLASMA [id number] 15:54:00 Test Item Value Reference Range Interpretation Comments RAPID PLASMA REAGIN (test code = RPR) NONREACTIVE AG HEPATITIS B [id number] 15:54:00 Test Item Value Reference Range Interpretation Comments AG HEPATITIS B SURFACE NON REACTIVE INDEX NonReactive (test code = HBSAG) AB HIV 1 15:54:00 Test Item Value Reference Range Interpretation Comments AB HIV 1 2 (test code = NONREACTIVE INDEX NONREACTIVE [id number]) RAPID PLASMA [id number] 13:47:00 Test Item Value Reference Range Interpretation Comments RAPID PLASMA REAGIN (test code = RPR) NONREACTIVE AG HEPATITIS B [id number] 13:47:00 Test Item Value Reference Range Interpretation Comments AG HEPATITIS B SURFACE NON REACTIVE INDEX NonReactive (test code = HBSAG) AB HIV 1 13:47:00 Test Item Value Reference Range Interpretation Comments AB HIV 1 2 (test code = [id number]) INDEX NONREACTIVE RAPID PLASMA [id number] 13:47:00 Test Item Value Reference Range Interpretation Comments RAPID PLASMA REAGIN (test code = RPR) NONREACTIVE AG HEPATITIS B [id number] 13:47:00 Test Item Value Reference Range Interpretation Comments AG HEPATITIS B SURFACE NON REACTIVE INDEX NonReactive (test code = HBSAG) AB HIV 1 13:47:00 Test Item Value Reference Range Interpretation Comments AB HIV 1 2 (test code = [id number]) INDEX NONREACTIVE CBC W/AUTO [id number] 13:15:00 Test Item Value Reference Range Interpretation Comments WHITE BLOOD CELL (test code = 10.92 x10 3/uL 4.5-11.0 N WBC) RED BLOOD CELL (test code = 3.59 x10 6/uL 3.54-5.02 N RBC) HEMOGLOBIN (test code = HGB) 10.5 g/dL 11.0-15.0 L HEMATOCRIT (test code = HCT) 31.3 % 33.0-45.0 L MEAN CELL VOLUME (test code = 87.2 fL 81.0-99.0 N MCV) MEAN CELL HGB (test code = 29.2 pg 27.0-33.0 N MCH) MEAN CELL HGB CONCETRATION 33.5 g/dL 33.0-37.0 N (test code = MCHC) RED CELL DISTRIBUTION WIDTH CV 14.0 % 11.5-14.5 N (test code = RDW) RED CELL DISTRIBUTION WIDTH SD 43.8 fL 37.0-54.0 N (test code = RDW-SD) PLATELET COUNT (test code = 191 x10 3/uL 150-400 N PLT) MEAN PLATELET VOLUME (test 11.7 fL 7.0-9.0 H code = MPV) NEUTROPHIL % (test code = NT%) 78.4 % 56.0-77.0 H IMMATURE GRANULOCYTE % (test 1.2 % 0.0-2.0 N code = IG%) LYMPHOCYTE % (test code = LY%) 11.5 % 14.0-32.0 L MONOCYTE % (test code = MO%) 7.7 % 4.8-9.0 N EOSINOPHIL % (test code = EO%) 1.0 % 0.3-3.7 N BASOPHIL % (test code = BA%) 0.2 % 0.0-2.0 N NUCLEATED RBC % (test code = 0.0 % 0-0 N NRBC%) NEUTROPHIL # (test code = NT#) 8.56 x10 3/uL 2.0-7.6 H IMMATURE GRANULOCYTE # (test 0.13 x10 3/uL 0.00-0.03 H code = IG#) LYMPHOCYTE # (test code = LY#) 1.26 x10 3/uL 1.0-3.8 N MONOCYTE # (test code = MO#) 0.84 x10 3/uL 0.1-0.8 H EOSINOPHIL # (test code = EO#) 0.11 x10 3/uL 0.0-0.2 N BASOPHIL # (test code = BA#) 0.02 x10 3/uL 0.0-0.2 N NUCLEATED RBC # (test code = 0.00 x10 3/uL 0.0-0.1 N NRBC#) MANUAL DIFF REQUIRED (test NO code = MDIFF) AMNISURE (ROM) [id number] 13:17:00 Test Item Value Reference Range Interpretation Comments AMNISURE (ROM) TEST (test NEGATIVE NEGATIVE OP ENED:05-26-2019 code = AMNI)
[2020-01-19] MEDS ORDERED: DERMABOND SKIN ADHESIVE TOP ONE (20:38)
--- NOTE | 2020-01-19 20:40 | ER ---
Nurse's Notes [facility] Name: Kath Rodarte Age: 34 yrs Sex: Female : 1985 Arrival Date: 01/19/2020 Time: 18:29 Bed 2 Private MD: Diagnosis: Laceration without foreign body of finger without damage to nail Presentation: 01/18 18:34 Chief complaint: Patient states: laceration to L index finger sustained by knife while ss preparing dinner. No active bleeding noted at this time. Coronavirus screen: Proceed with normal triage. Patient denies a cough. Patient denies shortness of breath or difficulty breathing. Patient denies measured and/or subjective temperature greater than 100.4F prior to today's visit. Patient denies travel on a cruise ship or to a country the [facility] currently lists as an affected area. Ebola Screen: Patient denies exposure to infectious person. Patient denies travel to an Ebola-affected area in the 21 days before illness onset. Initial Sepsis Screen: Does the patient meet any 2 criteria? No. Patient's initial sepsis screen is negative. Does the patient have a suspected source of infection? No. Patient's initial sepsis screen is negative. Risk Assessment: Do you want to hurt yourself or someone else? Patient reports no desire to harm self or others. Onset of symptoms was January 19, 2020. 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 - Social history:: Smoking status: Patient denies any tobacco usage or history of. Screenin:46 Abuse screen: Denies threats or abuse. Nutritional screening: No deficits noted. ea Tuberculosis screening: No symptoms or risk factors identified. Fall Risk None identified. Assessment: 18:39 Reassessment: cleaned and dressed laceration with sterile 4x4s and hibiclens. ss 20:44 General: Appears in no apparent distress. Behavior is calm, cooperative, appropriate ea for age. Pain: Complains of pain in left hand. Neuro: Level of Consciousness is awake, alert, obeys commands, Oriented to person, place, time, situation. Respiratory: Airway is patent Respiratory effort is even, unlabored, Respiratory pattern is regular, symmetrical. Derm: Skin is pink, warm \T\ dry. Injury Description: Laceration sustained to palmar aspect of distal phalanx of left index finger. 20:54 Reassessment: pt reported understanding of discharge instructions, even and steady gait jd3 upon discharge. Vital Signs: 18:34 BP 122 / 73; Pulse 79; Resp 15; Temp 98.1; Pulse Ox 100% on R/A; Weight 58.97 kg; ss Height 5 ft. 1 in. (154.94 cm); Pain 5/10; 20:54 BP 123 / 79; Pulse 80; Resp 16 S; Pulse Ox 100% on R/A; jd3 18:34 Body Mass Index 24.56 (58.97 kg, 154.94 cm) ED Course: 18:29 Patient arrived in ED. ag5 18:36 Triage completed. 18:36 Arm band placed on right wrist. 20:09 Josh Ferrer PA is PHCP. jr8 20:09 Bernardo Funez MD is Attending Physician. jr8 20:44 Lorena Vincent RN is Primary Nurse. ea 20:46 Patient has correct armband on for positive identification. Bed in low position. Call ea light in reach. Side rails up X 1. 20:46 Assist provider with laceration repair on palmar aspect of distal phalanx of left index ea finger that was 2.5 cm. or less using Dermabond. Performed by Josh CLAYTON Patient tolerated well. Patient did not have IV access during this emergency room visit. Administered Medications: No medications were administered Outcome: 20:39 Discharge ordered by . jrCarmen 20:49 Discharged to home ambulatory, with family. ea 20:49 Condition: stable 20:49 Discharge instructions given to patient, Instructed on discharge instructions, follow up and referral plans. Demonstrated understanding of instructions, follow-up care. 20:55 Patient left the ED. jd3 Signatures: Anabella Wade RN RN Josh Ferrer PA PA Lorena Huizar RN RN ea Davies, Jonathon, RN RN jd3 Walker Betancourt ag5
--- NOTE | 2020-01-19 20:40 | EDPHYS ---
Physician Documentation [facility] Name: Kath Rodarte Age: 34 yrs Sex: Female : 1985 Arrival Date: 01/19/2020 Time: 18:29 Bed 2 Private MD: ED Physician Bernardo Funez HPI: 01/18 20:40 This 34 yrs old Female presents to ER via Ambulatory with complaints of Finger jr8 Laceration. 20:40 The patient or guardian reports a laceration, irregular, 1.5 cm(s). The complaints jr8 affect the lateral aspect second digit near cuticle . Context: The problem was sustained at home. Onset: The symptoms/episode began/occurred acutely, today. Modifying factors: The symptoms are alleviated by nothing, the symptoms are aggravated by nothing. Associated signs and symptoms: The patient has no apparent associated signs or symptoms. Severity of symptoms: At their worst the symptoms were mild, in the emergency department the symptoms are unchanged. The patient has not experienced similar symptoms in the past. The patient has not recently seen a physician. was cooking and accidently cut herself with knife . 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 - Social history:: Smoking status: Patient denies any tobacco usage or history of. ROS: 20:40 Eyes: Negative for injury, pain, redness, and discharge, ENT: Negative for injury, jr8 pain, and discharge, Neck: Negative for injury, pain, and swelling, Cardiovascular: Negative for chest pain, palpitations, and edema, Respiratory: Negative for shortness of breath, cough, wheezing, and pleuritic chest pain, Abdomen/GI: Negative for abdominal pain, nausea, vomiting, diarrhea, and constipation, Back: Negative for injury and pain, MS/Extremity: Negative for injury and deformity, Neuro: Negative for headache, weakness, numbness, tingling, and seizure. 20:40 Skin: Positive for laceration(s), of the right index finger . Exam: 20:40 Constitutional: This is a well developed, well nourished patient who is awake, alert, jr8 and in no acute distress. Cardiovascular: Regular rate and rhythm with a normal S1 and S2. No gallops, murmurs, or rubs. Normal PMI, no JVD. No pulse deficits. Respiratory: Lungs have equal breath sounds bilaterally, clear to auscultation and percussion. No rales, rhonchi or wheezes noted. No increased work of breathing, no retractions or nasal flaring. MS/ Extremity: Pulses equal, no cyanosis. Neurovascular intact. Full, normal range of motion. Neuro: Awake and alert, GCS 15, oriented to person, place, time, and situation. Cranial nerves II-XII grossly intact. Motor strength 5/5 in all extremities. Sensory grossly intact. Cerebellar exam normal. Normal gait. 20:40 Skin: injury, laceration(s), the wound is approximately 1.5 cm(s), with a depth of .2 cm(s), of the lateral aspect right index finger near cuticle , that can be described as no foreign body, irregular, with mild bleeding. Vital Signs: 18:34 BP 122 / 73; Pulse 79; Resp 15; Temp 98.1; Pulse Ox 100% on R/A; Weight 58.97 kg; ss Height 5 ft. 1 in. (154.94 cm); Pain 5/10; 20:54 BP 123 / 79; Pulse 80; Resp 16 S; Pulse Ox 100% on R/A; jd3 18:34 Body Mass Index 24.56 (58.97 kg, 154.94 cm) ss Laceration: 20:40 Wound Repair of 1.5cm ( 0.6in ) subcutaneous laceration to right hand. Irregularly jr8 shaped.. Skin/tissue flap noted.. Distal neuro/vascular/tendon intact. Wound prep: Moderate cleansing with hibiclenz, Wound irrigation with saline, Wound explored moderately. Skin closed with thin layer Adhesive skin closure using Dermabond. Patient tolerated well. MDM: 20:09 Patient medically screened. jr8 20:38 Data reviewed: vital signs, nurses notes, and as a result, I will discharge patient. jr8 Data interpreted: Pulse oximetry: on room air is 100 %. Interpretation: normal. Counseling: I had a detailed discussion with the patient and/or guardian regarding: the historical points, exam findings, and any diagnostic results supporting the discharge/admit diagnosis, the need for outpatient follow up, a family practitioner, to return to the emergency department if symptoms worsen or persist or if there are any questions or concerns that arise at home. 01/18 20:53 Order name: Dermabond; Complete Time: 20:53 letty Administered Medications: No medications were administered Disposition: 01/19 05:32 Co-signature as Attending Physician, Bernardo Funez MD I agree with the assessment and tw4 plan of care. Disposition: 01/19/20 20:39 Discharged to Home. Impression: Laceration without foreign body of finger without damage to nail. - Condition is Stable. - Discharge Instructions: Stitches, Holmen, or Adhesive Wound Closure. - Medication Reconciliation Form, Thank You Letter, Antibiotic Education, Prescription Opioid Use form. - Follow up: Private Physician; When: 1 week; Reason: Wound Recheck, Recheck today's complaints, Continuance of care, Re-evaluation by your physician. - Problem is new. - Symptoms have improved. Signatures: Anabella Wade RN RN Josh Monroe PA PA jr8 Lorena Vincent RN RN ea Davies, Jonathon, RN RN jBernardo Alvarado MD MD tw4 Corrections: (The following items were deleted from the chart) 01/18 20:55 20:39 01/19/2020 20:39 Discharged to Home. Impression: Laceration without foreign body jd3 of finger without damage to nail. Condition is Stable. Forms are Medication Reconciliation Form, Thank You Letter, Antibiotic Education, Prescription Opioid Use. Follow up: Private Physician; When: 1 week; Reason: Wound Recheck, Recheck today's complaints, Continuance of care, Re-evaluation by your physician. Problem is new. Symptoms have improved. jr8
[2020-01-19 21:17] VITALS: TEMP 98.1; O2SAT 100
[2020-01-19 21:26] VITALS: BP 123/79
== END 2020-01-19 20:55 | disposition home or self-care (01) ==
LOC: ER 18:28
PROC: 0JQJ0ZZ Repair Right Hand Subcutaneous Tissue and Fascia, Open Approach (ICD-10-PCS; principal; 2020-01-19)
DX: S61.210A Laceration without foreign body of right index finger without damage to nail, initial encounter (principal); W26.0XXA Contact with knife, initial encounter; Y93.G3 Activity, cooking and baking; Y92.000 Kitchen of unspecified non-institutional (private) residence as the place of occurrence of the external cause
CPT/HCPCS: 99283